=== PATIENT | female | born 1985 | race Caucasian/White ===

== ENCOUNTER 2017-09-14 22:11 | Emergency (ER) | payer OTHER ==
[~2017-09-14] VITALS: Ht 162.6 cm; Wt 81.7 kg
[~2017-09-14 22:11] MED LIST: CIPROFLOXACIN500 M1 PO; FLAGYL500 MG PO; HYDROCODONE-APA1 TA1 PO; IBUPROFEN 600600 M1 PO; PERCOCET 7.5-31 EACH PO; ZOFRAN ODT4 MG PO
[2017-09-14] MEDS ORDERED: LEXAPRO 10 MG T10 M2 PO (22:24)
[2017-09-14] MEDS ORDERED: TOPROL XL25 MG PO (22:24)
[2017-09-14 22:34] LABS: URINE BILIRUBIN NEGATIVE (Negative); URINE BLOOD 2+ (Negative); URINE CLARITY CLEAR; URINE COLOR YELLOW; URINE GLUCOSE-RANDOM NEGATIVE (Negative); URINE KETONES NEGATIVE (Negative); URINE LEUKOCYTES-REFLEX NEGATIVE (Negative); URINE NITRITE-REFLEX NEGATIVE (Negative); URINE PROTEIN NEGATIVE (Negative); URINE SPECIFIC GRAVITY >= 1.030 (1.005-1.030); URINE UROBILINOGEN 0.2 E.U./dl (0.2-1.0)
[2017-09-14 22:49] LABS: ABSOLUTE BASOPHILS 0.1 thou/uL (0.0-0.2); ABSOLUTE EOSINOPHILS 0.4 thou/uL (0.0-0.7); ABSOLUTE LYMPHOCYTES 3.6 thou/uL (0.8-5.3); ABSOLUTE MONOCYTES 0.5 thou/uL (0.0-1.2); ABSOLUTE NEUTROPHILS 8.6 thou/uL (1.6-8.1); BASOPHILS 0.8 %; EOSINOPHILS 2.9 %; HEMATOCRIT 39.8 % (37.0-47.0); HEMOGLOBIN 13.1 gm/dL (12.0-15.0); LYMPHOCYTES 27.2 %; MCH 27.6 pg (26.0-34.0); MCHC 32.8 g/dL (28.0-37.0); MPV 9.3 fl. (7.2-11.1); NUCLEATED RBCS 0 /100WBC; PLATELET COUNT* 386 thou/uL (150-400); POLYS 65.1 %; RBC 4.74 mil/uL (4.20-5.00); RDW-CV 13.9 % (10.5-14.5); WBC 13.2 thou/uL (4.0-11.0)
[2017-09-14 22:51] LABS: BACTERIA-REFLEX 1-9 Few /HPF (None Seen); MUCUS 0-3 Light strn/LPF (None Seen); SQUAMOUS >10 Many /LPF (0-3)
[2017-09-14 22:53] LABS: CRYSTALS None Seen /LPF (None Seen); HYALINE CASTS 0-3 Few /LPF (None Seen); URINE RBC 3-10 Few /HPF (0-2); URINE WBC-REFLEX 0-5 Rare /HPF (0-5)
[2017-09-14 22:59] LABS: CALCIUM 9.2 mg/dL (8.5-10.1); CREATININE 0.8 mg/dL (0.6-1.3); POTASSIUM 4.4 mmol/L (3.5-5.1)
[2017-09-14 23:03] LABS: TOTAL BILIRUBIN 0.3 mg/dL (<0.1-1.0); TOTAL PROTEIN 7.9 g/dL (6.4-8.2)
[2017-09-15] MEDS ORDERED: NORCO 5-325 TA1 EACH PO ×2 (00:50→00:52)
[2017-09-15] MEDS ORDERED: ZOFRAN4 MG PO (00:50)
[2017-09-15 01:11] VITALS: BP 120/74
== END 2017-09-15 01:12 | disposition home or self-care (01) ==
LOC: M.ERS 22:11
PROVIDERS: Nurse Practitioner Family
DX: R10.9 Unspecified abdominal pain (principal); R31.9 Hematuria, unspecified; I10 Essential (primary) hypertension; F41.9 Anxiety disorder, unspecified; F32.9 Major depressive disorder, single episode, unspecified; Z87.442 Personal history of urinary calculi; Z90.49 Acquired absence of other specified parts of digestive tract

== ENCOUNTER 2017-11-16 07:58 | Emergency (ER) | payer OTHER ==
[~2017-11-16] VITALS: Ht 165.1 cm; Wt 85.7 kg
[~2017-11-16 07:58] MED LIST changes: +LEXAPRO 10 MG T10 M2 PO; +NORCO 5-325 TA1 EACH PO; +TOPROL XL25 MG PO; +ZOFRAN4 MG PO
[2017-11-16 08:34] LABS: ABSOLUTE EOSINOPHILS 0.1 thou/uL (0.0-0.7); ABSOLUTE LYMPHOCYTES 1.6 thou/uL (0.8-5.3); ABSOLUTE MONOCYTES 0.4 thou/uL (0.0-1.2); ABSOLUTE NEUTROPHILS 11.4 thou/uL (1.6-8.1); BASOPHILS 0.3 %; EOSINOPHILS 0.5 %; HEMATOCRIT 42.4 % (37.0-47.0); HEMOGLOBIN 13.7 gm/dL (12.0-15.0); MCH 26.9 pg (26.0-34.0); MCHC 32.2 g/dL (28.0-37.0); MCV 83.6 fL (80.0-100.0); MONOCYTES 3.2 %; MPV 9.5 fl. (7.2-11.1); NUCLEATED RBCS 0 /100WBC; PLATELET COUNT* 349 thou/uL (150-400); RBC 5.07 mil/uL (4.20-5.00); RDW-CV 13.7 % (10.5-14.5); WBC 13.5 thou/uL (4.0-11.0)
[2017-11-16 08:37] LABS: CALCIUM 8.1 mg/dL (8.5-10.1); CREATININE 0.9 mg/dL (0.6-1.3)
[2017-11-16 08:42] LABS: ALBUMIN 3.5 g/dL (3.4-5.0); TOTAL BILIRUBIN 0.2 mg/dL (<0.1-1.0); TOTAL PROTEIN 7.4 g/dL (6.4-8.2)
[2017-11-16] MEDS ORDERED: PREDNISONE50 MG PO (09:35)
[2017-11-16] MEDS ORDERED: HYDROXYZINE HCL25 M2 PO (09:35)
[2017-11-16 10:11] VITALS: BP 151/94
--- NOTE | 2017-11-16 13:02 | EKG ---
[place] [address] ELECTROCARDIOGRAM REPORT Name: CARDENASYESICA Room: [facility]#: [id number] Admission: 11/16/17 Attend Phys: Discharge: 11/16/17 Date of : 87 Report #: [id number] THIS REPORT FOR: //name// [facility] ED Test Date: 2017-11-16 Test Time: 08:05:01 Pat Name: YESICA CARDENAS Department: Room: Gender: F Grain Packer: Bernardo HATFIELD : 1985 Requested By: Candelaria Samuel Order Number: [id number] MD: Brandon Dunn Measurements Intervals [place] Rate: 92 P: 34 TN: 155 QRS: 47 QRSD: 82 T: 7 QT: 401 QTc: 497 Interpretive Statements Sinus rhythm Prolonged QT interval No previous ECG available for comparison Electronically Signed On 11-16-2017 13:01:45 CDT by Brandon Dunn [email or web address] <ELECTRONICALLY SIGNED> By: Brandon Dunn MD, [facility] 11/16/17 1301 0805 0805 Brandon Dunn MD, FACC /EPI
== END 2017-11-16 10:11 | disposition home or self-care (01) ==
LOC: M.ERS 07:58
PROVIDERS: Personal Emergency Response Attendant
DX: L50.9 Urticaria, unspecified (principal); T78.40XA Allergy, unspecified, initial encounter; I10 Essential (primary) hypertension; F41.9 Anxiety disorder, unspecified; F32.9 Major depressive disorder, single episode, unspecified; Z90.49 Acquired absence of other specified parts of digestive tract; Z87.442 Personal history of urinary calculi; X58.XXXA Exposure to other specified factors, initial encounter

== ENCOUNTER 2017-11-18 07:40 | Emergency (ER) | payer OTHER ==
[~2017-11-18] VITALS: Ht 165.1 cm; Wt 83.9 kg
[~2017-11-18 07:40] MED LIST changes: +HYDROXYZINE HCL25 M2 PO; +PREDNISONE50 MG PO
[2017-11-18 08:28] LABS: ABSOLUTE BASOPHILS 0.1 thou/uL (0.0-0.2); ABSOLUTE LYMPHOCYTES 3.8 thou/uL (0.8-5.3); ABSOLUTE MONOCYTES 0.7 thou/uL (0.0-1.2); BASOPHILS 0.6 %; EOSINOPHILS 0.1 %; HEMOGLOBIN 13.8 gm/dL (12.0-15.0); LYMPHOCYTES 25.9 %; MCH 26.9 pg (26.0-34.0); MCHC 32.8 g/dL (28.0-37.0); MONOCYTES 4.5 %; MPV 9.1 fl. (7.2-11.1); NUCLEATED RBCS 0 /100WBC; PLATELET COUNT* 367 thou/uL (150-400); POLYS 68.9 %; RBC 5.12 mil/uL (4.20-5.00); RDW-CV 13.6 % (10.5-14.5); WBC 14.6 thou/uL (4.0-11.0)
[2017-11-18 08:59] LABS: CALCIUM 8.7 mg/dL (8.5-10.1); POTASSIUM 3.3 mmol/L (3.5-5.1)
[2017-11-18 09:04] LABS: ALBUMIN 3.2 g/dL (3.4-5.0); TOTAL BILIRUBIN 0.2 mg/dL (<0.1-1.0); TOTAL PROTEIN 6.6 g/dL (6.4-8.2)
[2017-11-18 10:51] LABS: BE 0.9 mmol/L (-2 to +3); HCO3 25.8 mmol/L (22.0-26.0); PCO2 42.2 mmHg (35.0-45.0); PO2 67.9 mmHg (75.0-100.0); pH 7.404 (7.340-7.450)
[2017-11-18 11:59] LABS: ESR (SEDRATE) 20 mm/hr (0-20)
[2017-11-18 12:21] LABS: INFLUENZA A ANTIGEN None Detected (None Detect); INFLUENZA B ANTIGEN None Detected (None Detect)
[2017-11-18] MEDS ORDERED: AMOXICILLIN875 MG PO (13:37)
[2017-11-18 13:45] VITALS: BP 139/93
--- NOTE | 2017-11-18 16:27 | EKG ---
[place] [address] ELECTROCARDIOGRAM REPORT Name: RONALDYESICA Gutiérrez Room: [facility]#: [id number] Admission: 11/18/17 Attend Phys: Discharge: 11/18/17 Date of : 87 Report #: [id number] THIS REPORT FOR: //name// [facility] ED Test Date: 2017-11-18 Test Time: 07:45:19 Pat Name: YESICA CARDENAS Department: Room: Gender: F Alignment Mechanic: Bernardo CASANOVA : 1985 Requested By: Candelaria Samuel Order Number: [id number] Pascale PASTOR: Brandon Dunn Measurements Intervals [place] Rate: 84 P: 48 [place]: 140 QRS: 55 QRSD: 87 T: 0 QT: 386 QTc: 457 Interpretive Statements Sinus rhythm Compared to ECG 11/16/2017 08:05:01 Prolonged QT interval no longer present Electronically Signed On 11-18-2017 16:27:34 CDT by Brandon Dunn [email or web address] <ELECTRONICALLY SIGNED> By: Brandon Dunn MD, [facility] 11/18/17 1627 0745 0745 Brandon Dunn MD, FACC /EPI
== END 2017-11-18 13:46 | disposition home or self-care (01) ==
LOC: M.ERS 07:40
PROVIDERS: Personal Emergency Response Attendant
DX: L50.9 Urticaria, unspecified (principal); R06.4 Hyperventilation; R06.02 Shortness of breath; R07.9 Chest pain, unspecified; R20.2 Paresthesia of skin; I10 Essential (primary) hypertension

== ENCOUNTER → 2018-12-27 | Outpatient (CLI) | payer OTHER ==
[~2018-12-27] MED LIST changes: +AMOXICILLIN875 MG PO; +CEFUROXIME500 MG PO; +KEFLEX250 M1 PO; +LEVSIN0.125 MG SUBLING; +NORCO 7.5-3251 EACH PO; +PHENAZOPYRIDIN100 M1 PO
== END ==
LOC: M.MRI 12-05 16:25
DX: H47.11 Papilledema associated with increased intracranial pressure (principal)

== ENCOUNTER 2019-01-09 18:45 | Inpatient (IN) | payer OTHER ==
[~2019-01-09] VITALS: Ht 165.1 cm; Wt 87.1 kg
[~2019-01-09 18:45] MED LIST changes: -CEFUROXIME500 MG PO; -KEFLEX250 M1 PO; -LEVSIN0.125 MG SUBLING; -NORCO 7.5-3251 EACH PO; -PHENAZOPYRIDIN100 M1 PO
[2019-01-09 18:59] VITALS: BP 187/101
[2019-01-09] MEDS ORDERED: KEFLEX250 M1 PO (19:04)
[2019-01-09 20:02] LABS: HEMATOCRIT 38.9 % (37.0-47.0); HEMOGLOBIN 12.8 gm/dL (12.0-15.0); MCV 75.8 fL (80.0-100.0); MPV 8.6 fl. (7.2-11.1); NUCLEATED RBCS 0 /100WBC; PLATELET COUNT* 478 thou/uL (150-400); RBC 5.14 mil/uL (4.20-5.00); RDW-CV 16.7 % (10.5-14.5); WBC 20.6 thou/uL (4.0-11.0)
[2019-01-09 20:12] LABS: CALCIUM 9.3 mg/dL (8.5-10.1); CREATININE 0.9 mg/dL (0.6-1.3)
[2019-01-09 20:13] LABS: POTASSIUM 2.7 mmol/L (3.5-5.1)
[2019-01-09 20:17] LABS: ALBUMIN 3.6 g/dL (3.4-5.0); TOTAL BILIRUBIN 0.2 mg/dL (<0.1-1.0); TOTAL PROTEIN 7.7 g/dL (6.4-8.2)
[2019-01-09 20:19] LABS: URINE BILIRUBIN NEGATIVE (Negative); URINE BLOOD 3+ (Negative); URINE CLARITY SL CLOUDY; URINE COLOR RED; URINE GLUCOSE-RANDOM NEGATIVE (Negative); URINE KETONES NEGATIVE (Negative); URINE LEUKOCYTES-REFLEX NEGATIVE (Negative); URINE PROTEIN 2+ (Negative); URINE SPECIFIC GRAVITY 1.025 (1.005-1.030); URINE UROBILINOGEN 0.2 E.U./dl (0.2-1.0)
[2019-01-09 20:20] LABS: BACTERIA-REFLEX >30 Many /HPF (None Seen); CASTS None Seen /LPF (None Seen); CRYSTALS None Seen /LPF (None Seen); SQUAMOUS 0-3 Few /LPF (0-3); URINE NITRITE-REFLEX POSITIVE (Negative); URINE RBC >20 Many /HPF (0-2); URINE WBC-REFLEX >25 Many /HPF (0-5)
[2019-01-09 20:53] LABS: ABSOLUTE LYMPHOCYTES 5.8 thou/uL (0.8-5.3); ABSOLUTE MONOCYTES 0.6 thou/uL (0.0-1.2); ABSOLUTE NEUTROPHILS 14.2 thou/uL (1.6-8.1)
[2019-01-09 20:55] LABS: PLATELET ESTIMATE ADEQUATE
[2019-01-09 20:58] LABS: LARGE PLATELETS OCCASIONAL
[2019-01-09 23:03] VITALS: BP 143/89
[2019-01-10 00:29] VITALS: BP 147/92
[2019-01-10 03:38] LABS: ABSOLUTE LYMPHOCYTES 1.8 thou/uL (0.8-5.3); ABSOLUTE MONOCYTES 0.4 thou/uL (0.0-1.2); ABSOLUTE NEUTROPHILS 15.3 thou/uL (1.6-8.1); BASOPHILS 0.2 %; HEMATOCRIT 33.6 % (37.0-47.0); HEMOGLOBIN 11.2 gm/dL (12.0-15.0); MCH 25.1 pg (26.0-34.0); MCHC 33.4 g/dL (28.0-37.0); MCV 75.4 fL (80.0-100.0); MONOCYTES 2.5 %; MPV 8.1 fl. (7.2-11.1); NUCLEATED RBCS 0 /100WBC; POLYS 87.3 %; RBC 4.46 mil/uL (4.20-5.00); RDW-CV 16.3 % (10.5-14.5); WBC 17.6 thou/uL (4.0-11.0)
[2019-01-10 03:40] LABS: PLATELET COUNT* 382 thou/uL (150-400)
[2019-01-10 03:44] LABS: CALCIUM 8.3 mg/dL (8.5-10.1); CREATININE 0.6 mg/dL (0.6-1.3); POTASSIUM 3.5 mmol/L (3.5-5.1)
[2019-01-10 04:04] VITALS: BP 136/85
[2019-01-10 07:58] VITALS: BP 132/75
--- NOTE | 2019-01-10 09:54 | EKG ---
[place] [address] ELECTROCARDIOGRAM REPORT Name: YESICA CARDENAS Room: [address] ADM IN .R.#: [id number] Admission: 01/09/19 Attend Phys: Keyonna Feldman MD Discharge: Date of : 87 Report #: [id number] THIS REPORT FOR: //name// [facility] ED Test Date: 2019-01-09 Test Time: 20:23:37 Pat Name: YESICA CARDENAS Department: Room: [facility] Gender: F Manager Philosophy: : 1985 Requested By: Chase Neri Order Number: [id number] MD: Martín Horner Measurements Intervals [place] Rate: 70 P: 44 [place]: 155 QRS: 33 QRSD: 108 T: 0 QT: 392 QTc: 423 Interpretive Statements Sinus rhythm artifact noted Borderline T wave abnormalities Compared to ECG 11/18/2017 07:45:19 no change Electronically Signed On 01-10-2019 9:54:26 CDT by Martín Horner [email or web address] <ELECTRONICALLY SIGNED> By: Mratín Horner MD, [facility] 01/10/19 0954 22 22 Martín Horner MD, FAC /EPI
[2019-01-10 16:00] VITALS: BP 136/70
[2019-01-10 19:47] VITALS: BP 125/71
[2019-01-11 05:09] LABS: HEMATOCRIT 31.4 % (37.0-47.0); HEMOGLOBIN 10.2 gm/dL (12.0-15.0); MCH 25.1 pg (26.0-34.0); MCHC 32.5 g/dL (28.0-37.0); MCV 77.2 fL (80.0-100.0); MPV 8.4 fl. (7.2-11.1); RBC 4.07 mil/uL (4.20-5.00); WBC 14.6 thou/uL (4.0-11.0)
[2019-01-11 05:24] LABS: CALCIUM 8.2 mg/dL (8.5-10.1); CREATININE 0.8 mg/dL (0.6-1.3); MAGNESIUM 1.8 mg/dL (1.8-2.4); POTASSIUM 3.4 mmol/L (3.5-5.1)
[2019-01-11 07:15] VITALS: BP 134/93
--- NOTE | 2019-01-11 11:23 | CON ---
[address] [address] CONSULTATION Name: YESICA CARDENAS Room: [address] IN M.R.#: [id number] Admission: 01/09/19 Attend Phys: Keyonna Feldman MD Discharge: Date of : 87 Report #: [id number] THIS REPORT FOR: //name// CC: Keyonna Membreno INFECTIOUS DISEASE CONSULTATION ATTENDING PHYSICIAN: Keyonna Feldman MD REASON FOR EVALUATION: Complicated urinary tract infection due to left ureteral stone with obstructive uropathy and pyelonephritis. HISTORY OF PRESENT ILLNESS: Chart reviewed, patient examined. This is a 33-year-old woman with known history of recurrent complicated urinary tract infections, apparently on the basis of recurrent renal lithiasis, she dates back to age 15. She admits to roughly wanted hospitalization a year, had had multiple surgeries, has a current stent as well, had a urinalysis which confirmed marked pyuria as well as bacteriuria. Did undergo a cystoscopy, left retrograde pyelogram, and left double-J stent placement. Still has persistent significant pain, has been afebrile. Appetite actually was quite diminished, but improved over the course of the last 12 hours. Empirically started on antimicrobials with ceftriaxone. Of note was recently hospitalized and diagnosed with right-sided facial skin and soft tissue infection with cellulitis, felt due to a spider bite, was discharged on cephalexin. ALLERGIES: None known. MEDICATIONS: Include ceftriaxone, metoprolol, escitalopram, pantoprazole, hyoscyamine, morphine. PAST MEDICAL HISTORY: Idiopathic intracranial hypertension, anxiety, depression, chronic issue with renal lithiasis, previous cholecystectomy. SOCIAL HISTORY: No ethanol. Smokes cigarettes. No illicit drug use. FAMILY HISTORY: Noncontributory. REVIEW OF SYSTEMS: Denies any significant pulmonary-related complaints. Has mild nausea. PHYSICAL EXAMINATION: GENERAL: She is alert, cooperative, appropriate. She is in gzov-kd-siplmqsw distress, well nourished. VITAL SIGNS: Temperature 98.1, pulse 63, respirations 16, blood pressure 132/75. SKIN: Warm, dry[place] [address] CONSULTATION Name: YESICA CARDENAS Room: [address] IN [facility]#: [id number] Admission: 01/09/19 Attend Phys: Keyonna Feldman MD Discharge: Date of : 87 Report #: [id number] HEENT: Normocephalic. Extraocular muscles intact. NECK: Supple. LUNGS: Somewhat diminished, otherwise clear breath sounds. HEART: Regular. I do not appreciate a murmur. ABDOMEN: Percussively somewhat tender on the left side. There are no peritoneal signs. GENITOURINARY AND RECTAL: Deferred. LABORATORY DATA: Initial urinalysis showed marked pyuria, greater than 25 white cells, greater than 30 bacteria. Electrolytes: Sodium 138, potassium 2.7, chloride 103, bicarbonate is 23, anion gap of 12, BUN and creatinine of 15 and 0.9. Lipase of 368. Albumin is 3.6. Total protein is 7.7. Estimated GFR of 73. CBC: White count of 20.6, H and H of 12.8 and 38.9, platelets of 478. Had lymphocytosis. Lactic acid 1.7. CT of the pelvis showed obstructing 5 mm calculus in the proximal left ureter with associated mild to moderate left hydroureteronephrosis. Blood culture sterile thus far. ASSESSMENT AND PLAN: Complicated urinary tract infection due to obstructing ureteral stone and obstructive uropathy. Continue the ceftriaxone. It should give us reasonable coverage and we will add gentamicin as a single dose pending the results to see how she does. Clinically, was encouraged to push the fluids, use incentive spirometer that is at the bedside, and be somewhat active as allowed so as she would imagine we can transition to oral if there is a reasonable option over the course of next 2-3 days. <ELECTRONICALLY SIGNED> By: Shemar Marquez MD 01/11/19 1123 1142 [id number] Marquez MD /nt
[2019-01-11 20:00] VITALS: BP 115/70
[2019-01-12] MEDS ORDERED: PHENAZOPYRIDIN100 M1 PO (08:09)
[2019-01-12] MEDS ORDERED: LEVSIN0.125 MG SUBLING (08:09)
[2019-01-12] MEDS ORDERED: CEFUROXIME500 MG PO (08:09)
[2019-01-12 08:45] VITALS: BP 159/99
[2019-01-12 10:41] VITALS: BP 159/99
[2019-01-12] MEDS ORDERED: NORCO 7.5-3251 EACH PO (11:08)
[2019-01-12 12:18] VITALS: BP 159/99
--- NOTE | 2019-01-24 20:42 | OP ---
[address] [address] OPERATIVE REPORT Name: RONALDYESICA Marla Room: [address] IN M.R.#: [id number] Admission: 01/09/19 Attend Phys: Keyonna Feldman MD Discharge: 01/12/19 Date of : 87 Report #: [id number] THIS REPORT FOR: //name// CC: Keyonna Membreno DATE OF SERVICE: 01/09/2019 INDICATION FOR PROCEDURE: The patient is a 33-year-old female who was admitted through the Emergency Department with left flank pain, UTI associated with tachycardia and elevated white blood cell count. She was admitted for IV antibiotics and has consented for cystoscopy with left double-J stent placement due to a 5 mm left proximal ureteral calculus associated with UTI. PREOPERATIVE DIAGNOSES: 1. Left ureteral stone. 2. Left pyelonephritis. POSTOPERATIVE DIAGNOSES: 1. Left ureteral stone. 2. Left pyelonephritis. PROCEDURE PERFORMED: Cystoscopy, left retrograde pyelogram, left double-J stent placement. SURGEON: Martín Weeks MD ANESTHESIA: General. COMPLICATIONS: None. ESTIMATED BLOOD LOSS: None. PROCEDURE IN DETAIL: The patient was consented for the above procedure. She was given broad spectrum IV antibiotics preoperatively. She was given general anesthetic and placed in a dorsal lithotomy position. She was prepped and draped in usual sterile fashion over the genitalia. The stone was not well seen on fluoroscopy. Cystoscopy was performed with a 22-[place] sheath and 30 degree lens, which revealed no evidence of stones, ulcerations or tumors within the bladder itself, the ureteral orifices in proper position. A left retrograde pyelogram was performed with a 5-[place] Pollack catheter and half strength Omnipaque, which revealed a normal caliber ureter up to the level just below the ureteropelvic junction where a filling defect was noted. There was mild hydronephrosis above that. Based on that, a 0.035 floppy-tipped guidewire was passed up the left ureter past the area of obstruction into the renal pelvis. Next, a 4.8 x 28 double-J stent was passed over the wire [place] [address] OPERATIVE REPORT Name: YESICA CARDENAS Marla Room: [address] IN [facility].#: [id number] Admission: 01/09/19 Attend Phys: Keyonna Feldman MD Discharge: 01/12/19 Date of : 87 Report #: [id number] the renal pelvis and in the bladder after removing the wire. Moderately purulent-appearing urine drained upon stent placement. The bladder was drained, scope was removed. Lidocaine gel was placed per urethra for local anesthesia and the patient was awakened and sent to recovery room where she remained in stable condition. She will require IV antibiotics followed by a full course of p.o. antibiotics before a formal stone procedure will be planned. <ELECTRONICALLY SIGNED> By: Martín Weeks MD 01/24/19 2042 2334 0000David Gaudencio Weeks MD /nt
== END 2019-01-12 11:20 | disposition home or self-care (01) | DRG 854 ==
LOC: M.ERS 18:45 → M.ICU 23:03 → M.ERS 23:03 → M.ICU 23:50 → M.TBA-ER 23:50 → M.ORTHSURG 23:50 → M.ICU 01-10 00:34 → M.ORTHSURG 01-10 07:39
PROVIDERS: Physician Assistant; Urology; ADMIT Internal Medicine
PROC: 0T778DZ Dilation of Left Ureter with Intraluminal Device, Via Natural or Artificial Opening Endoscopic (ICD-10-PCS; principal; 2019-01-09)
PROC: BT1F1ZZ Fluoroscopy of Left Kidney, Ureter and Bladder using Low Osmolar Contrast (ICD-10-PCS; principal; 2019-01-09)
DX: A41.9 Sepsis, unspecified organism (principal); N13.6 Pyonephrosis; F41.9 Anxiety disorder, unspecified; F32.9 Major depressive disorder, single episode, unspecified; R00.0 Tachycardia, unspecified; I10 Essential (primary) hypertension; F17.210 Nicotine dependence, cigarettes, uncomplicated; E87.6 Hypokalemia; Z90.49 Acquired absence of other specified parts of digestive tract; Z86.14 Personal history of Methicillin resistant Staphylococcus aureus infection; Z79.899 Other long term (current) drug therapy

== ENCOUNTER 2020-05-05 15:27 | Inpatient (IN) | payer OTHER ==
[~2020-05-05] VITALS: Ht 162.6 cm; Wt 88.1 kg
[~2020-05-05 15:27] MED LIST changes: +CEFUROXIME500 MG PO; +KEFLEX250 M1 PO; +LEVSIN0.125 MG SUBLING; +NORCO 7.5-3251 EACH PO; +PHENAZOPYRIDIN100 M1 PO
[2020-05-05 15:40] VITALS: BP 164/111
[2020-05-05] MEDS ORDERED: LASIX 40 MG TAB40 MG PO (15:45)
[2020-05-05] MEDS ORDERED: ALPRAZOLAM XR3 MG PO (15:45)
[2020-05-05] MEDS ORDERED: LAMICTAL XR50 MG PO (15:45)
[2020-05-05 16:30] LABS: ABSOLUTE BASOPHILS 0.1 thou/uL (0.0-0.2); ABSOLUTE EOSINOPHILS 0.4 thou/uL (0.0-0.7); ABSOLUTE MONOCYTES 0.8 thou/uL (0.0-1.2); ABSOLUTE NEUTROPHILS 12.4 thou/uL (1.6-8.1); BASOPHILS 0.7 %; EOSINOPHILS 2.1 %; HEMATOCRIT 37.8 % (37.0-47.0); HEMOGLOBIN 12.1 gm/dL (12.0-15.0); LYMPHOCYTES 18.2 %; MCH 24.5 pg (26.0-34.0); MCHC 32.1 g/dL (28.0-37.0); MCV 76.5 fL (80.0-100.0); MONOCYTES 4.6 %; MPV 8.3 fl. (7.2-11.1); NUCLEATED RBCS 0 /100WBC; PLATELET COUNT* 391 thou/uL (150-400); POLYS 74.4 %; RBC 4.95 mil/uL (4.20-5.00); WBC 16.6 thou/uL (4.0-11.0)
[2020-05-05 16:38] LABS: URINE BILIRUBIN NEGATIVE (Negative); URINE BLOOD NEGATIVE (Negative); URINE CLARITY CLEAR; URINE COLOR YELLOW; URINE GLUCOSE-RANDOM NEGATIVE (Negative); URINE KETONES NEGATIVE (Negative); URINE LEUKOCYTES-REFLEX NEGATIVE (Negative); URINE NITRITE-REFLEX NEGATIVE (Negative); URINE PROTEIN NEGATIVE (Negative); URINE UROBILINOGEN 0.2 E.U./dl (0.2-1.0)
[2020-05-05 16:42] LABS: CALCIUM 9.3 mg/dL (8.5-10.1); CREATININE 0.7 mg/dL (0.6-1.3); POTASSIUM 2.9 mmol/L (3.5-5.1)
[2020-05-05 16:44] LABS: APTT 25.5 Seconds (25.0-31.3); PROTIME 10.3 Seconds (9.20-11.50)
[2020-05-05 16:53] LABS: ALBUMIN 3.3 g/dL (3.4-5.0); TOTAL BILIRUBIN 0.1 mg/dL (<0.1-1.0); TOTAL PROTEIN 6.8 g/dL (6.4-8.2)
[2020-05-05 18:18] LABS: CSF GLUCOSE 59 mg/dl (40-70); CSF PROTEIN 32.2 mg/dl (15-45)
[2020-05-05 18:37] LABS: CSF CLARITY CLEAR; CSF COLOR COLORLESS; VOLUME 10 ml
[2020-05-05 18:38] LABS: CSF RBC 0 /mm3; CSF WBC 0 /mm3 (0-10)
[2020-05-05 20:13] VITALS: BP 136/91
[2020-05-05 20:20] VITALS: BP 131/84
[2020-05-05] MEDS ORDERED: ALPRAZOLAM 0.0.25 M1 PO (21:06)
[2020-05-05] MEDS ORDERED: LAMICTAL XR100 MG PO (21:07)
[2020-05-05] MEDS ORDERED: METOPROLOL SUCC50 MG PO (21:08)
[2020-05-05 23:43] VITALS: BP 129/80
--- NOTE | 2020-05-06 03:10 | NUR ---
RECEIVED PT FROM ED PER CART. PT IS AWAKE AND ORIENTED X4. PT IS NOT IN DISTRESS, NO DESATURATIONS NOTED ON ROOM AIR. PT IS TRACING SR ON THE FIRE MANAGEMENT OFFICER. PT IS FLAT ON BED UNTIL 2300. PT IS ABLE TO TOLERATE SITTING UP AND AMBULATING TO THE BATHROOM W/ STB ASSIST THEREAFTER. ADMISSION ASSESSMENT DONE AND CHARTED. NO ACUTE CHANGES THIS SHIFT. CALL LIGHT WITHIN REACH. HOURLY ROUNDING DONE FOR PT SAFETY.
[2020-05-06 04:00] VITALS: BP 116/62
[2020-05-06 08:00] VITALS: BP 120/82
[2020-05-06 11:40] VITALS: BP 122/75
--- NOTE | 2020-05-06 13:35 | NUR ---
Pt is A&O. Resides at home with . Independent. No DME. No hx of HH or SNF. Goal is home at dc, no needs anticipated. Anticipate dc in a few days.
--- NOTE | 2020-05-06 13:59 | EKG ---
[place] [address] ELECTROCARDIOGRAM REPORT Name: YESICA CARDENAS Room: [address] ADM IN .R.#: [id number] Admission: 05/05/20 Attend Phys: Noah Guthrie, Discharge: Date of : 87 Date of Service: 05/05/20 1628 Report #: [id number] THIS REPORT FOR: //name// [facility] ED Test Date: 2020-05-05 Test Time: 16:28:36 Pat Name: YESICA CARDENAS Department: Room: [facility] Gender: F Sign Manufacturer: : 1985 Requested By: Wellington Anna Order Number: [id number] MD: Brandon Dunn Measurements Intervals [place] Rate: 74 P: 46 TN: 177 QRS: 51 QRSD: 92 T: 15 QT: 394 QTc: 438 Interpretive Statements Sinus rhythm Compared to ECG 01/09/2019 20:23:37 T-wave abnormality no longer present Electronically Signed On 05-06-2020 13:59:11 ASSISTED LIVING CARE MANAGER by Brandon Dunn [email or web address] <ELECTRONICALLY SIGNED> By: Brandon Dunn MD, [facility] 05/06/20 1359 1628 1628 Brandon Dunn MD, [facility] /EPI
--- NOTE | 2020-05-06 14:28 | NUR ---
ASSUMED CARE OF PATIENT THIS AM AT 0730. PATIENT IS ALERT AND ORIENTED X 4. SHE DENIES PAIN THIS AM. PATIENT TAKEN TO RADIOLOGY PER W/C FOR MRI THIS AM. SHE HAS BEEN UP AD EWELINA TO BATHROOM. PATIENT IS ANSWERING QUESTIONS APPROPRIATELY TODAY. NO FALLS OR INJURY. TELE SHOWS SR.
[2020-05-06 16:29] VITALS: BP 131/85
[2020-05-06 20:49] VITALS: BP 113/79
[2020-05-07] VITALS (7 sets, daily range): BP systolic 118–144; BP diastolic 69–85
[2020-05-07 04:53] LABS: HEMOGLOBIN 12.2 gm/dL (12.0-15.0); MCH 24.5 pg (26.0-34.0); MCV 76.6 fL (80.0-100.0); MPV 8.4 fl. (7.2-11.1); RBC 4.97 mil/uL (4.20-5.00); RDW-CV 15.2 % (10.5-14.5); WBC 16.1 thou/uL (4.0-11.0)
[2020-05-07 05:12] LABS: ALBUMIN 3.1 g/dL (3.4-5.0); TOTAL BILIRUBIN 0.1 mg/dL (<0.1-1.0); TOTAL PROTEIN 6.7 g/dL (6.4-8.2)
--- NOTE | 2020-05-07 05:23 | NUR ---
PT IS ABLE TO COMMUNICATE HER NEEDS TO STAFF EFFECTIVELY. SHE HAS DENIED THE NEED FOR PAIN MEDICATION UP TO THIS TIME. TELEPSYCH CONSULT TO BE TENTATIVELY PERFORMED THIS MORNING BETWEEN 0700 AND NOON. ID CONSULTED WELL.
--- NOTE | 2020-05-07 12:48 | NUR ---
Med changes made. Anticipate dc to home tomorrow.
--- NOTE | 2020-05-07 18:50 | NUR ---
PT IS ALERT AND ORIENTED X4 DID GET A RASH AND ITCHING TODAY AROUND IV SITE FACE KNEES AND NECK DC'D IV AND IV MEDS DC'D D/T IRRITATED SKIN GAVE BENADRYL AND XANAX LATER WITH SOME RELIEF PT IS UP AD EWELINA NO OTHER CONCERNS AT THIS TIME CALL LIGHT IN REACH
[2020-05-08 04:13] VITALS: BP 113/63
[2020-05-08 04:59] LABS: HEMATOCRIT 37.5 % (37.0-47.0); MCH 24.5 pg (26.0-34.0); MCHC 31.9 g/dL (28.0-37.0); MCV 76.8 fL (80.0-100.0); MPV 8.3 fl. (7.2-11.1); RBC 4.88 mil/uL (4.20-5.00); RDW-CV 15.2 % (10.5-14.5); WBC 12.6 thou/uL (4.0-11.0)
[2020-05-08 05:00] LABS: ABSOLUTE BASOPHILS 0.1 thou/uL (0.0-0.2); ABSOLUTE EOSINOPHILS 0.3 thou/uL (0.0-0.7); ABSOLUTE LYMPHOCYTES 3.3 thou/uL (0.8-5.3); ABSOLUTE MONOCYTES 0.7 thou/uL (0.0-1.2); ABSOLUTE NEUTROPHILS 8.3 thou/uL (1.6-8.1); BASOPHILS 0.7 %; EOSINOPHILS 2.3 %; HEMATOCRIT 37.7 % (37.0-47.0); LYMPHOCYTES 26.2 %; MCH 24.6 pg (26.0-34.0); MCHC 31.8 g/dL (28.0-37.0); MCV 77.3 fL (80.0-100.0); MONOCYTES 5.2 %; MPV 8.4 fl. (7.2-11.1); NUCLEATED RBCS 0 /100WBC; PLATELET COUNT* 354 thou/uL (150-400); POLYS 65.6 %; RBC 4.87 mil/uL (4.20-5.00); RDW-CV 15.2 % (10.5-14.5); WBC 12.6 thou/uL (4.0-11.0)
[2020-05-08 05:16] LABS: CALCIUM 8.8 mg/dL (8.5-10.1); MAGNESIUM 2.1 mg/dL (1.8-2.4); TOTAL BILIRUBIN 0.1 mg/dL (<0.1-1.0); TOTAL PROTEIN 6.6 g/dL (6.4-8.2)
[2020-05-08 08:00] VITALS: BP 116/71
[2020-05-08] MEDS ORDERED: ACETAZOLAMIDE250 M2 PO (09:19)
[2020-05-08 11:15] VITALS: BP 116/71
[2020-05-08 11:19] VITALS: BP 109/65
--- NOTE | 2020-05-08 11:33 | NUR ---
PATIENT DENIES DIZZINESS, NUMBNESS, TINGLING, AND IS ORIENTED X4. DISCHARGED WITH NEW MED AND FOLLOW UP INSTRUCTIONS. PATIENT UNDERSTANDS DISCHARGE TEACHING.
== END 2020-05-08 11:35 | disposition home or self-care (01) | DRG 103 ==
LOC: M.ERS 15:27 → M.2W 18:35 → M.TBA-ER 18:35 → M.2W 20:33
PROVIDERS: Emergency Medicine Emergency Medical Services; Internal Medicine; ADMIT Internal Medicine; ATTEND Internal Medicine
PROC: 009U3ZX Drainage of Spinal Canal, Percutaneous Approach, Diagnostic (ICD-10-PCS; principal; 2020-05-05)
DX: G93.2 Benign intracranial hypertension (principal); N39.0 Urinary tract infection, site not specified; F32.9 Major depressive disorder, single episode, unspecified; F41.9 Anxiety disorder, unspecified; I10 Essential (primary) hypertension; E87.6 Hypokalemia; Z87.442 Personal history of urinary calculi; Z86.14 Personal history of Methicillin resistant Staphylococcus aureus infection; Z90.49 Acquired absence of other specified parts of digestive tract; Z79.899 Other long term (current) drug therapy; Z23 Encounter for immunization

== ENCOUNTER 2020-09-29 18:18 | Emergency (ER) | payer OTHER ==
[~2020-09-29] VITALS: Ht 162.6 cm; Wt 83.0 kg
[~2020-09-29 18:18] MED LIST changes: +ACETAZOLAMIDE250 M2 PO; +ALPRAZOLAM 0.0.25 M1 PO; +ALPRAZOLAM XR3 MG PO; +LAMICTAL XR100 MG PO; +LAMICTAL XR50 MG PO; +LASIX 40 MG TAB40 MG PO; +METOPROLOL SUCC50 MG PO
[2020-09-29] MEDS ORDERED: TRAMADOL 50 MG50 MG PO (20:17)
[2020-09-29 20:50] VITALS: BP 155/98
== END 2020-09-29 20:50 | disposition home or self-care (01) ==
LOC: M.ERS 18:18
DX: S90.31XA Contusion of right foot, initial encounter (principal); F17.210 Nicotine dependence, cigarettes, uncomplicated; Z87.442 Personal history of urinary calculi; Z79.899 Other long term (current) drug therapy; W20.8XXA Other cause of strike by thrown, projected or falling object, initial encounter; Y93.89 Activity, other specified; Y92.89 Other specified places as the place of occurrence of the external cause; Y99.8 Other external cause status